=== PATIENT | male | born 1965 | race Caucasian/White ===

== ENCOUNTER 2019-10-18 12:03 | Outpatient (CLI) | payer BC, MEDICARE ==
--- NOTE | 2019-10-18 12:27 | RAD ---
XR Shoulder Rt 3 View STANDARD: 10/18/2019 12:00 AM CLINICAL INDICATION: Pain COMPARISON: None. FINDINGS: Fracture:No fracture. Arthropathy:Mild arthropathy. Incidental findings:None of significance. IMPRESSION: 1. No acute osseous abnormality.
== END 2019-10-18 12:04 | disposition home or self-care (01) ==
LOC: BICRAD 12:03
PROVIDERS: ATTEND Physician Assistant
DX: M25.511 Pain in right shoulder (principal)

== ENCOUNTER 2021-09-30 11:22 | Outpatient (CLI) | payer MEDICARE | END 2021-09-30 11:23 | disposition home or self-care (01) | LOC: BICRAD 11:22 | PROVIDERS: ATTEND Family Medicine | DX: Z01.818 Encounter for other preprocedural examination (principal) | CPT/HCPCS: 71046 ==

== ENCOUNTER 2022-11-30 10:00 | Outpatient (CLI) | payer MEDICARE | END 2022-11-30 10:01 | disposition home or self-care (01) | LOC: RAD 10:00 | PROVIDERS: ATTEND Family Medicine | DX: M79.672 Pain in left foot (principal) ==